=== PATIENT | female | born 1975 | race Two or more races ===

== ENCOUNTER 2021-09-16 08:45 | Outpatient (CLI) | payer BC | END 2021-09-16 08:59 | disposition home or self-care (01) | LOC: LAB 08:45 | PROVIDERS: ATTEND Specialist | DX: J45.998 Other asthma (principal) ==

== ENCOUNTER 2021-09-20 13:03 | Outpatient (CLI) | payer BC | END 2021-09-20 13:14 | disposition home or self-care (01) | LOC: LAB 13:03 | PROVIDERS: ATTEND Specialist | DX: E03.8 Other specified hypothyroidism (principal); N39.8 Other specified disorders of urinary system; E78.2 Mixed hyperlipidemia; E11.65 Type 2 diabetes mellitus with hyperglycemia; D64.89 Other specified anemias; D68.8 Other specified coagulation defects; M32.10 Systemic lupus erythematosus, organ or system involvement unspecified; E28.39 Other primary ovarian failure ==